=== PATIENT | female | born 1975 | race Caucasian/White ===

== ENCOUNTER 2017-02-22 18:25 | Emergency (ER) | payer MEDICAID ==
[~2017-02-22] VITALS: Ht 160 cm; Wt 87.2 kg
[~2017-02-22 18:25] MED LIST: FAMO20TA7 PO; IBUP800T PO
[2017-02-22 19:47] LABS: ASPARTATE AMINO TRANSFERASE 14 U/L (15-37); BLOOD UREA NITROGEN 15 mg/dL (7-18)
[2017-02-22] MEDS ORDERED: MAGNESIUM CITRATE 300ML ORAL SOL ONE (21:05)
[2017-02-22 21:19] VITALS: BP 113/80
[2017-02-22] MEDS ORDERED: MAGNESIUM CITRATE 300ML ORAL SOL PO ONE (21:30)
== END 2017-02-22 21:21 | disposition home or self-care (01) ==
LOC: ED 19:09
DX: K59.39 Other megacolon (principal); K59.00 Constipation, unspecified; K21.9 Gastro-esophageal reflux disease without esophagitis
CPT/HCPCS: 36415; 74022; 80053; 83690; 84703; 85025; 93005

== ENCOUNTER 2017-04-07 19:57 | Emergency (ER) | payer MEDICAID ==
[~2017-04-07] VITALS: Ht 160 cm; Wt 87.8 kg
[2017-04-07 19:59] VITALS: BP 130/82
== END 2017-04-07 22:28 | disposition home or self-care (01) ==
LOC: ED 22:22
DX: M79.604 Pain in right leg (principal)
CPT/HCPCS: 99281

== ENCOUNTER 2018-08-30 22:10 | Emergency (ER) | payer MEDICAID, OTHER ==
[~2018-08-30] VITALS: Ht 160 cm; Wt 99.4 kg
[~2018-08-30 22:10] MED LIST changes: +IBUP-1223 PO; -IBUP800T PO
[2018-08-30] MEDS ORDERED: ASPIRIN 81 MG TABLET CHEW PO ONE (23:00)
[2018-08-30 23:08] LABS: BASOPHILS # (AUTO) 0.05 x10^3/uL (0-0.1); BASOPHILS % (AUTO) 1 % (0-1); EOSINOPHILS # (AUTO) 0.12 x10^3/uL (0-0.4); EOSINOPHILS % (AUTO) 1 % (1-7); LYMPHOCYTES # (AUTO) 2.83 x10^3/uL (1-3.4); LYMPHOCYTES % (AUTO) 28 % (22-44); MD NO; MEAN CORPUSCULAR HEMOGLOBIN 30.3 pg (27.0-34.8); MEAN CORPUSCULAR HGB CONC 33.7 g/dL (32.4-35.8); MEAN CORPUSCULAR VOLUME 89.9 fL (80-100); MEAN PLATELET VOLUME 10.1 fL (7.4-10.4); MONOCYTES # (AUTO) 0.49 x10^3/uL (0.2-0.8); MONOCYTES % (AUTO) 5 % (2-9); NEUTROPHILS # (AUTO) 6.48 x10^3/uL (1.8-6.8); NEUTROPHILS % (AUTO) 65 % (42-75); PLATELET COUNT 238 x10^3/uL (130-400); RED CELL DISTRIBUTION WIDTH 14.4 % (9.6-15.2)
[2018-08-30] MEDS ORDERED: ASPIRIN 81 MG TABLET CHEW ONE (23:19)
[2018-08-30 23:21] LABS: ALBUMIN 3.7 g/dL (3.4-5.0); ANION GAP 8 mmol/L (5-15); CALCIUM 9.2 mg/dL (8.5-10.1); CHLORIDE 107 mmol/L (98-107); CREATININE 0.91 mg/dL (0.55-1.02)
[2018-08-30 23:25] LABS: TROPONIN I < 0.015 ng/mL (0.000-0.045)
[2018-08-31 01:29] VITALS: BP 119/80
== END 2018-08-31 01:31 | disposition home or self-care (01) ==
LOC: ED 23:59
DX: R07.89 Other chest pain (principal); K21.9 Gastro-esophageal reflux disease without esophagitis
CPT/HCPCS: 36415; 71045; 80048; 82040; 84484; 85025; 93005; 99285

== ENCOUNTER 2019-03-06 21:21 | Emergency (ER) | payer SELFPAY ==
[~2019-03-06] VITALS: Ht 160 cm; Wt 98.0 kg
[2019-03-06 21:27] VITALS: BP 126/77
--- NOTE | 2019-03-06 21:36 | NUR ---
PT PRESENTED WITH C/O PAIN IN RIGHT HEEL X 3 YEARS. PT STATED HAS BEEN ON FEET X 2 DAYS FOR WORK AND PAIN HAS WORSENED. DENIED NUMBNESS AND TINGLING IN RIGHT FOOT. PT RESTING ON GURNEY, MONITOR APPLIED, SIDERAILS UP X2, CALL LIGHT WITHIN REACH. ERP AT BEDSIDE FOR EVAL
== END 2019-03-06 22:06 | disposition home or self-care (01) ==
LOC: ED 21:50
DX: M79.671 Pain in right foot (principal); G89.29 Other chronic pain; Z90.49 Acquired absence of other specified parts of digestive tract; Z90.710 Acquired absence of both cervix and uterus; K21.9 Gastro-esophageal reflux disease without esophagitis
CPT/HCPCS: 99281

== ENCOUNTER 2019-04-27 09:51 | Outpatient (CLI) | payer OTHER | END 2019-04-27 23:59 | disposition home or self-care (01) | LOC: CFH 09:51 | PROVIDERS: ATTEND Nurse Practitioner | DX: M79.671 Pain in right foot (principal); M72.2 Plantar fascial fibromatosis ==

== ENCOUNTER 2021-02-21 22:18 | Emergency (ER) | payer OTHER ==
[~2021-02-21] VITALS: Ht 160 cm; Wt 96.2 kg
[2021-02-21] MEDS ORDERED: IBUPROFEN 800 MG TABLET ONE (23:20)
[2021-02-21] MEDS ORDERED: IBUPROFEN 800 MG TABLET PO ONE (23:30)
--- NOTE | 2021-02-21 23:32 | NUR ---
CC OF RIGHT FOOT AND BIG TOE SWELLING SINCE THIS AM. PT STATES SHE ALSO NEEDS A DOCTOR NOTE TO WEAR A BOOT AT WORK. AT BEDSIDE
[2021-02-22 01:00] VITALS: BP 116/75
== END 2021-02-22 01:26 | disposition home or self-care (01) ==
LOC: ED 22:48
DX: M10.072 Idiopathic gout, left ankle and foot (principal); M79.89 Other specified soft tissue disorders; K21.9 Gastro-esophageal reflux disease without esophagitis; Z88.0 Allergy status to penicillin; Z88.8 Allergy status to other drugs, medicaments and biological substances; Z90.49 Acquired absence of other specified parts of digestive tract; Z90.710 Acquired absence of both cervix and uterus
CPT/HCPCS: 99283